=== PATIENT | female | born 2000 | race Caucasian/White ===

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

== ENCOUNTER 2020-09-25 19:05 | Emergency (ER) | payer BC, OTHER ==
[2020-09-25] MEDS ORDERED: diphenhydrAMINE 50 MG/ML SDV IVPUSH ONE (20:47)
[2020-09-25] MEDS ORDERED: Ketorolac 30 MG/ML SDV IVPUSH ONE (20:47)
[2020-09-25] MEDS ORDERED: Sodium Chloride 0.9% 10 ML Syringe FLUSH PRN (20:47)
[2020-09-25] MEDS ORDERED: Prochlorperazine 5 MG in Sodium Chloride 0.9% 50 ML IV ONE (20:47)
--- NOTE | 2020-09-25 20:50 | EDM.PDOC ---
ED HPI GENERAL MEDICAL PROBLEM - General Chief Complaint: Headache Stated Complaint: HEADACH LAST 3 DAYS GETTING WORSE Time Seen by Provider: 09/25/20 20:44 Source of Information: Reports: Patient, RN Notes Reviewed History Limitations: Reports: No Limitations - History of Present Illness INITIAL COMMENTS - FREE TEXT/NARRATIVE: 20-year-old female presents emergency department a complaint of headache, she has a known history of migraine headache states she has been having troubles with a headache over the last month with daily headaches has usually been using naproxen to control them however of the last 3 days headache has gotten significantly worse did try amitriptyline without much success does have nausea and photophobia pain initially was in the frontal portion of the head but now it has migrated to the back Headache Pain Score (Numeric/FACES): 7 - Related Data Allergies Allergy/AdvReac Type Severity Reaction Status Date / Time No Known Allergies Allergy Verified 09/25/20 20:26 Home Meds: Home Meds NK [No Known Home Meds] 05/22/18 [History] Past Medical History HEENT History: Reports: Allergic Rhinitis, Impaired Vision Genitourinary History: Reports: STD Psychiatric History: Reports: Anxiety, Depression, Psych Hospitalization(s), Suicide Attempt, Suicidal Ideation Hematologic History: Reports: Anemia Social & Family History - Tobacco Use Tobacco Use Status *Q: Current Every Day Tobacco User Years of Tobacco use: 1 Packs/Tins Daily: 1 - Recreational Drug Use Recreational Drug Use: No ED ROS GENERAL - Review of Systems Review Of Systems: See Below Constitutional: Reports: No Symptoms HEENT: Reports: Eye Pain Respiratory: Reports: No Symptoms Cardiovascular: Reports: No Symptoms GI/Abdominal: Reports: Nausea Neurological: Reports: Headache - Physical Exam Exam: See Below Exam Limited By: No Limitations General Appearance: Alert, WD/WN, No Apparent Distress Eye Exam: Bilateral Eye: EOMI, Normal Fundi, PERRL Respiratory/Chest: No Respiratory Distress Course - Vital Signs Last Recorded V/S: Last Vital Signs Temp 97.6 F 09/25/20 20:27 Pulse 75 09/25/20 21:24 Resp 15 09/25/20 21:24 BP 131/98 H 09/25/20 21:24 Pulse Ox 96 09/25/20 21:24 - Orders/Labs/Meds Orders: Active Orders 24 hr Category Date Time Status Peripheral IV Care [RC] . DIRECTED Care 09/25/20 20:47 Active Sodium Chloride 0.9% [Normal Saline] 1,000 ml Med 09/25/20 21:00 Active IV ASDIRECTED Sodium Chloride 0.9% [Saline Flush] Med 09/25/20 20:47 Active 10 ml FLUSH ASDIRECTED PRN Peripheral IV Insertion Adult [OM.PC] Urgent Oth 09/25/20 20:47 Ordered Medication Orders Sodium Chloride (Normal Saline) 1,000 mls @ 500 mls/hr IV ASDIRECTED ALE Last Admin: 09/25/20 21:17 Dose: 500 mls/hr Documented by: YUN Sodium Chloride (Saline Flush) 10 ml FLUSH ASDIRECTED PRN PRN Reason: Keep Vein Open Last Admin: 09/25/20 21:17 Dose: 10 ml Documented by: YUN Meds: Medications Generic Name Dose Route Start Last Admin Trade Name Freq PRN Reason Stop Dose Admin Sodium Chloride 1,000 mls @ 500 mls/hr 09/25/20 21:00 09/25/20 21:17 Normal Saline IV 500 mls/hr ASDIRECTED ALE Administration Sodium Chloride 10 ml 09/25/20 20:47 09/25/20 21:17 Saline Flush FLUSH 10 ml ASDIRECTED PRN Administration Keep Vein Open Discontinued Medications Generic Name Dose Route Start Last Admin Trade Name Freq PRN Reason Stop Dose Admin Diphenhydramine HCl 25 mg 09/25/20 20:47 09/25/20 21:17 Benadryl IVPUSH 09/25/20 20:48 25 mg ONETIME ONE Administration Prochlorperazine Edisylate 5 51 mls @ 150 mls/hr 09/25/20 20:47 09/25/20 21:17 mg/ Sodium Chloride IV 09/25/20 21:07 150 mls/hr ONETIME ONE Administration Ketorolac Tromethamine 30 mg 09/25/20 20:47 09/25/20 21:17 Toradol IVPUSH 09/25/20 20:48 30 mg ONETIME ONE Administration Departure - Departure Time of Disposition: 22:01 Disposition: Home, Self-Care 01 Condition: Fair Clinical Impression: Migraine - Discharge Information Instructions: Migraine Headache, [id number] Referrals: PCP,None [Primary Care Provider] - Forms: ED Department Discharge Additional Instructions: Please followup with your primary care provider in 3-5 days if not better, please call return to the emergency department with worsening of symptoms. Sepsis Event Note (ED) - Evaluation Sepsis Screening Result: No Definite Risk - Focused Exam Vital Signs: Vital Signs Temp Pulse Resp BP Pulse Ox 09/25/20 21:24 75 15 131/98 H 96 09/25/20 20:27 97.6 F 48 L 14 106/64 98 09/25/20 20:20 97.6 F 48 L 14 106/64 98 - My Orders Last 24 Hours: My Active Orders 09/25/20 20:47 Peripheral IV Care [RC] . DIRECTED Sodium Chloride 0.9% [Saline Flush] 10 ml FLUSH ASDIRECTED PRN Peripheral IV Insertion Adult [OM.PC] Urgent 09/25/20 21:00 Sodium Chloride 0.9% [Normal Saline] 1,000 ml IV ASDIRECTED - Assessment/Plan Last 24 Hours: My Active Orders 09/25/20 20:47 Peripheral IV Care [RC] . DIRECTED Sodium Chloride 0.9% [Saline Flush] 10 ml FLUSH ASDIRECTED PRN Peripheral IV Insertion Adult [OM.PC] Urgent 09/25/20 21:00 Sodium Chloride 0.9% [Normal Saline] 1,000 ml IV ASDIRECTED Plan: Assessment Acuity = acute Site and laterality = migraine type headache Etiology = unknown Manifestations = none Location of injury = Home Lab values = none Plan Good improvement with combination Toradol 1 L fluids Compazine and Benadryl she is going to try going home see if she can sleep this migraine follow-up with your primary care as needed This note was dictated using [employer] voice recognition software please call with any questions on syntax or grammar.
[2020-09-25] MEDS ORDERED: Sodium Chloride 0.9% 1,000 ML IV SCH (21:00)
[2020-09-25 21:25] VITALS: BP 131/98; PULSE 75
== END 2020-09-25 22:13 | disposition home or self-care (01) ==
LOC: JP.ED 19:05
DX: G43.909 Migraine, unspecified, not intractable, without status migrainosus (principal); Z72.0 Tobacco use
CPT/HCPCS: 96365; 96375; 99283; J0780; J1200; J1885; J7030; 99284

== ENCOUNTER 2022-05-08 12:14 | Emergency (ER) | payer BC ==
[2022-05-08 12:51] VITALS: BP 112/73; PULSE 71
[2022-05-08] MEDS ORDERED: Sodium Chloride 0.9% 1,000 ML IV SCH (13:15)
[2022-05-08] MEDS ORDERED: Metoclopramide 10 MG/2 ML SDV IVPUSH ONE (13:15)
[2022-05-08 14:14] LABS: ESTIMATED GFR 130 mL/min (>60)
== END 2022-05-08 14:48 | disposition home or self-care (01) ==
LOC: JP.ED 12:14
DX: O21.9 Vomiting of pregnancy, unspecified (principal); Z3A.01 Less than 8 weeks gestation of pregnancy; F17.210 Nicotine dependence, cigarettes, uncomplicated; Z91.040 Latex allergy status
CPT/HCPCS: 36415; 80053; 80305; 81001; 84702; 85025; 96361; 96374; 99284; J2765; J7030

== ENCOUNTER 2022-11-12 10:23 | Emergency (ER) | payer BC, OTHER ==
[2022-11-12 10:38] VITALS: BP 138/87; PULSE 64
== END 2022-11-12 11:37 | disposition home or self-care (01) ==
LOC: JP.ED 10:23
DX: F41.9 Anxiety disorder, unspecified (principal); Z91.040 Latex allergy status
CPT/HCPCS: 99283

== ENCOUNTER 2023-05-22 07:06 | Emergency (ER) | payer BC, OTHER ==
[2023-05-22] MEDS ORDERED: Prochlorperazine 10 MG/2 ML SDV IVPUSH PRN (07:49)
[2023-05-22] MEDS ORDERED: Ketorolac 15 MG/ML SDV IVPUSH ONE (07:50)
[2023-05-22 08:00] LABS: BASOPHILS ABSOLUTE AUTO 0.05 K/uL (0.00-0.10); BASOPHILS PERCENT AUTO 0.6 % (0.1-1.3); EOSINOPHILS ABSOLUTE AUTO 0.41 K/uL (0.00-0.40); HEMATOCRIT 39.7 % (34.3-46.0); HEMOGLOBIN 13.9 g/dL (11.2-15.5); IMMATURE GRAN ABSOLUTE AUTO 0.03 K/uL (0.00-0.23); IMMATURE GRAN PERCENT AUTO 0.4 % (0.0-0.7); LYMPHOCYTES ABSOLUTE AUTO 1.23 K/uL (0.8-3.3); LYMPHOCYTES PERCENT AUTO 15.1 % (11.4-47.7); MEAN CORPUSCULAR HEMOGLOBIN 29.3 pg (31.6-35.5); MEAN CORPUSCULAR VOLUME 83.8 fL (81.4-99.0); MONOCYTES ABSOLUTE AUTO 0.74 K/uL (0.20-0.90); MONOCYTES PERCENT AUTO 9.1 % (3.3-12.6); NEUTROPHILS ABSOLUTE AUTO 5.69 K/uL (1.0-7.6); NEUTROPHILS PERCENT AUTO 69.8 % (40.0-78.1); PLATELET COUNT,PLT 281 K/uL (130-375); RED BLOOD CELL COUNT 4.74 M/uL (3.77-5.24); WHITE BLOOD CELL COUNT,WBC 8.2 K/uL (3.2-11.0)
[2023-05-22 08:23] LABS: A/G RATIO 1.1 (1.2-2.2); ALANINE AMINOTRANSFERASE,ALT 27 U/L (12-78); ALBUMIN 4.1 g/dL (3.4-5.0); ALKALINE PHOSPHATASE 69 U/L (46-116); ASPARTATE AMNIOTRANSFERASE,AST 13 U/L (15-37); BILIRUBIN TOTAL 0.5 mg/dL (0.2-1.0); BLOOD UREA NITROGEN,BUN 8 mg/dL (7-18); C-REACTIVE PROTEIN 0.72 mg/dL (0.0-0.3); CALCIUM 9.3 mg/dL (8.5-10.1); CARBON DIOXIDE,CO2 30 mmol/L (21-32); CHLORIDE,CL 101 mmol/L (100-108); CREATININE 0.7 mg/dL (0.6-1.0); EST CRCL DRUG DOSING (CG) 102.93 mL/min; ESTIMATED GFR 125 mL/min (>60); GLUCOSE RANDOM 91 mg/dL (74-106); POTASSIUM,K 3.8 mmol/L (3.6-5.2); SODIUM,NA 139 mmol/L (140-148)
[2023-05-22 08:25] LABS: ANION GAP 11.8 mmol/L (5.0-14.0); TROPONIN I HIGH SENSITIVITY < 4.0 pg/mL (<=60.3)
[2023-05-22 09:05] VITALS: BP 126/69; PULSE 66
== END 2023-05-22 09:20 | disposition home or self-care (01) ==
LOC: JP.ED 07:06
DX: J06.9 Acute upper respiratory infection, unspecified (principal); Z20.822 Contact with and (suspected) exposure to COVID-19; Z91.040 Latex allergy status
CPT/HCPCS: 36415; 80053; 84484; 85025; 86140; 87635; 93005; 96374; 96375; 99285; J0780; J1885; 93010; 99283; U0002